=== PATIENT | male | born 1995 | race Two or more races ===

== ENCOUNTER 2016-06-18 04:37 | Emergency (ER) | payer OTHER ==
[2016-06-18 04:42] VITALS: BP 124/77; PULSE 99; RESP 16; TEMP 97.9; O2SAT 97
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
== END 2016-06-18 05:39 | disposition home or self-care (01) ==
PROC: 0HQ1XZZ Repair Face Skin, External Approach (ICD-10-PCS; principal; 2016-06-18)
DX: S01.511A Laceration without foreign body of lip, initial encounter (principal); Y04.0XXA Assault by unarmed brawl or fight, initial encounter

== ENCOUNTER 2016-06-18 14:12 | Emergency (ER) | payer OTHER ==
[2016-06-18 14:16] VITALS: RESP 16; O2SAT 97
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
[2016-06-18 15:26] VITALS: BP 130/70; PULSE 76; TEMP 97.5
== END 2016-06-18 15:26 | disposition home or self-care (01) ==
PROC: 0CQ1XZZ Repair Lower Lip, External Approach (ICD-10-PCS; principal; 2016-06-18)
DX: T81.33XA Disruption of traumatic injury wound repair, initial encounter (principal); Y82.8 Other medical devices associated with adverse incidents